=== PATIENT | female | born 1985 | race Two or more races ===

== ENCOUNTER 2024-08-11 10:40 | Inpatient (IN) | payer MEDICAID, SELFPAY ==
[2024-08-11] VITALS (93 sets, daily range): BP systolic 115–169; BP diastolic 60–95; PULSE 57–98; RESP 17–18; TEMP 36.8–37.7; O2SAT 83–100
--- NOTE | 2024-08-11 13:10 | XR_ITS ---
Examination: age Limited TECHNIQUE: Limited transabdominal sonographic images pelvis Exam date and time: August 11, 2024 1332 hours INDICATIONS: Labor evaluation unknown presentation. FINDINGS: Viable intrauterine gestation cephalic presentation spine maternal left Cardiac motion 138 BPM IMPRESSION: Viable intrauterine gestation cephalic presentation
[2024-08-11] MEDS: MISOPROSTOL 50 mCg TABLET PO (14:12)
[2024-08-11 14:35] LABS: Basophils % (Auto) 0 % (0-2.5); Eosinophils % (Auto) 0 % (0-10); Hemoglobin 13.2 g/dL (12.0-16.0); Immature Granulocytes % (Auto) 0 % (0-0); Immature Granulocytes Auto 0.03 Thou/mm3 (0.00-0.00); Lymphocytes # (Auto) 3.1 Thou/mm3 (1.0-4.8); Lymphocytes % (Auto) 42 % (10-50); Mean Corpuscular HGB Conc 36.7 g/dl (31.0-37.0); Mean Corpuscular Hemoglobin 34.7 pg (25.0-35.0); Mean Corpuscular Volume 95 fL (80-100); Monocytes # (Auto) 0.5 Thou/mm3 (0.0-0.8); Monocytes % (Auto) 7 % (0-12); Neutrophils # (Auto) 3.8 Thou/mm3 (1.8-7.7); Neutrophils % (Auto) 51 % (37-80); Nucleated Red Blood Cell % 0 /100 WBC (0); Platelet Count 138 Thou/mm3 (140-440); RDW Standard Deviation 45.5 fL (36.4-46.3); White Blood Count 7.4 Thou/mm3 (3.6-11.0)
[2024-08-11 15:04] LABS: Syphilis Nonreactive (Nonreactive)
[2024-08-11] MEDS: ursodioL 300 MG CAPSULE PO (16:01)
[2024-08-11] MEDS: MEPERIDINE INJ 50 MG/ML VIAL 75 MG IM (16:49)
[2024-08-11] MEDS: PROMETHAZINE INJ 25 MG/ML VIAL 12 MG IM (16:51)
--- NOTE | 2024-08-11 18:48 | PD.LDHP ---
Documentation for date of: 08/11/24 OB Labor/Induct. HPI History of Present Illness Chief complaint: induction : 3 Para: 2 Term pregnancies: 1 pregnancies: 1 Living children: 1 History of Abortions: Spontaneous and Elective: 0 History of Vaginal deliveries: 2 History of sections: No History of : No Date of last menstrual period: 11/24/23 MISTY: 08/30/24 Gestational Age (weeks): 38 Gestational Age (days): 3 Gestational age based on last menstrual period: 38 Indication for induction: medical complication (cholestasis) History of present illness: This is a third ED 9-year-old 3 para 2 patient has a history of demise at 24 weeks so living 1 follow-up [facility] care first visit 9 weeks. Last period. November 15, 2023. Estimated due date august 222023. Patient is admitted today because of cholestasis in at 38 weeks 3 days. Patient was treated started on ursodiol. And she has been getting NST BPP weekly. Denies social habits. Denies surgery. Eyes chronic illness. Patient is O+, antibody screen negative, RPR nonreactive, rubella immune, hepatitis B negative, hep C negative, HIV negative, GC and Chlamydia were negative. GBS negative. She had a normal 1 hour. NIPT and carrier AFP and carrier screens were negative. History of Present Dating criteria: LMP confirmed by 1st trimester US Adequate Care: Yes Ultrasounds: normal 1st trimester US and normal mid trimester US Obstetrical complications: other (cholestasis) Medical complications: none Labs Labs: Negative: Hepatitis B, HIV, Chlamydia, Gonorrhea and Group Beta Strep Review of Systems Review of Systems Systems Reviewed: All systems reviewed, normal except as documented Past Medical History Surgical History SURGICAL: Negative Section Meds Home Medications and Allergies Home Medications ?Medication ?Instructions ?Recorded ?Confirmed ?Type ferrous sulfate 325 mg (65 mg 325 mg PO QDAY 08/08/24 08/11/24 History iron) tablet (FeroSul) vits no.130-ferrous fum 1 tab PO QDAY 08/08/24 08/11/24 History 27 mg iron-folic acid 800 mcg tablet ( Vitamin) ursodiol 300 mg capsule 300 mg PO QDAY 08/08/24 08/11/24 History Allergies Allergy/AdvReac Type Severity Reaction Status Date / Time No Known Allergies Allergy Verified 08/11/24 12:10 OB Exam Physical Exam Vital signs: Temp Pulse Resp BP Pulse Ox 98.2 F 63 18 115/68 97 08/11/24 12:21 08/11/24 18:02 08/11/24 12:21 08/11/24 18:02 08/11/24 18:46 Narrative: Normal heart rate and rhythm. Lungs clear no wheezes. Gravid abdomen. Gynecoid pelvis. Estimated weight 6 and half pounds. Vaginal exam admission was long 1 and posterior. High. heart rate category 1 with accelerations and irregular contractions. Bag water was intact Detailed Labor and Delivery Exam Dilation (cm): 1 Effacement (%): 50 Cervix position: posterior station: -3 Consistency: medium Presentation: Vertex Cervical ripeness score: 3 Membranes: intact Baseline heart rate: 145 monitor accelerations: 15x15 monitor decelerations: None terminal makeup operator variability: Moderate (11-25) Contraction frequency (min): irregular Contraction duration (sec): 30 Tachysystole: No Contraction intensity: Mild OB Results Labs 08/11/24 13:30 Labs: Short CBC 08/11/24 Range/Units 13:30 WBC 7.4 (3.6-11.0) Thou/mm3 Hgb 13.2 (12.0-16.0) g/dL Hct 36.0 (36.0-46.0) % Plt Count 138 L (140-440) Thou/mm3 Impressions Impression: induction/cholestasis OB Assessment & Plan Assessment and Plan (1) Normal labor and delivery: Status: Acute Additional Plan Induction method: per misoprostol protocol Plan: induction, anticipate NVD and consult MD hairston
[2024-08-11] MEDS: MINERAL OIL 30 ML UDC TOP (19:35)
[2024-08-11] MEDS: OXYTOCIN in NS 20 units 20 UNIT/1,000 ML BAG 125 UNIT IV (19:37)
[2024-08-11] MEDS: TRANEXAMIC ACID 1,000 MG IVPB 1,000 MG/100 ML BAG 200 MG IV (19:38)
[2024-08-11] MEDS: OXYTOCIN INJ 10 UNIT/ML VIAL IM (19:40)
[2024-08-11] MEDS: MISOPROSTOL 200 mCg TABLET 800 MCG PR (19:40)
[2024-08-11] MEDS: LIDOCAINE HCL 1% 20 ML VIAL INFL (19:45)
[2024-08-11] MEDS: IBUPROFEN TAB 400 MG TABLET 800 MG PO (19:54)
[2024-08-11] MEDS: BENZO/LANO/ALOE (Dermoplast) 60 GM CAN 1 SPRAY TOP (19:55)
--- NOTE | 2024-08-11 20:07 | PD.LDDELS ---
Data ([place]) Data Hx Section: No : 3 Para: 2 Term: 1 : 1 : 0 Delivery Data ([place]) Labor Data Induction: Yes ROM Date: 08/11/24 ROM Time: 18:14 Rupture Type: AROM Amniotic Fluid: Clear Delivery Data EDC: 08/20/24 EDC calculated by:: LMP/early US confirmation Labor Onset Stage 1 Date: 08/11/24 Labor Onset Stage 1 Time: 18:29 Labor Onset Stage 2 Date: 08/11/24 Labor Onset Stage 2 Time: 19:20 Delivery Date: 08/11/24 Delivery Time: 19:36 Gestational age (weeks): 38 Gestational age (days): 3 Placenta Delivery Date: 08/11/24 Placenta Delivery Time: 19:41 Delivered by: China Maki Delivery nurse: Pilar Barnes Other staff at delivery: 2nd Nurse Other staff at delivery: Pratima Gale Delivery Method Delivery: Vaginal Delivery Type: Spontaneous Presentation: Vertex Position: OA Anesthesia Type Primary Anesthesia: Local Delivery Room Medications Intrapartum Medications: Narcotics and Tocolytics Post Delivery Medications: Tocolytics and Cytotec Placenta Placenta Delivery: Spontaneous Placenta Cultures Obtained: No Placenta Sent for Examination: No Cord Sample: Cord Blood Obtained Episiotomy Episiotomy: None Lacerations #1: Labial: right labia and small vaginal laceration Perineal repair Sutures used for repair: 3.0 Vicryl EBL Estimated blood loss (ml): 400 Umbilical Cord Umbilical Vessels: 3 Nuchal Cord: x1 Body Cord: None Data ([place]) [place] Data Infant Gender: Female Weight Grams: 3080 1 Minute Total: 6 5 Minute Total: 8
[2024-08-12 04:07] VITALS: BP 122/76; PULSE 78; RESP 16; TEMP 36.9; O2SAT 96
[2024-08-12 05:49] LABS: Basophils % (Auto) 0 % (0-2.5); Eosinophils % (Auto) 0 % (0-10); Hematocrit 31.9 % (36.0-46.0); Hemoglobin 11.7 g/dL (12.0-16.0); Immature Granulocytes % (Auto) 1 % (0-0); Immature Granulocytes Auto 0.06 Thou/mm3 (0.00-0.00); Lymphocytes # (Auto) 3.8 Thou/mm3 (1.0-4.8); Lymphocytes % (Auto) 29 % (10-50); Mean Corpuscular HGB Conc 36.7 g/dl (31.0-37.0); Mean Corpuscular Hemoglobin 35.1 pg (25.0-35.0); Mean Corpuscular Volume 96 fL (80-100); Monocytes # (Auto) 0.8 Thou/mm3 (0.0-0.8); Monocytes % (Auto) 6 % (0-12); Neutrophils # (Auto) 8.6 Thou/mm3 (1.8-7.7); Neutrophils % (Auto) 65 % (37-80); Nucleated Red Blood Cell # 0.02 Thou/mm3 (0.00-0.00); Nucleated Red Blood Cell % 0 /100 WBC (0); Platelet Count 97 Thou/mm3 (140-440); RDW Standard Deviation 45.5 fL (36.4-46.3); Red Blood Count 3.33 Miln/mm3 (4.00-5.20); White Blood Count 13.3 Thou/mm3 (3.6-11.0)
--- NOTE | 2024-08-12 07:43 | PD.LDPPPRG ---
Subjective Subjective Interval history: No complaints of pain. No dizziness. Bonding and breast-feeding Exam Vital Signs Temp Pulse Resp BP Pulse Ox O2 Del Method 98.4 F 78 16 122/76 96 Room Air 08/12/24 04:07 08/12/24 04:07 08/12/24 04:07 08/12/24 04:07 08/12/24 04:07 08/12/24 04:07 Narrative Exam Vital signs stable afebrile. Breasts are soft. Fundus firm below the umbilicus. Perineum intact no swelling. Small lochia. Uterus well involuted. Negative Homans' sign. 2+ DTRs. No warmth or redness of the legs. Objective Labs 08/12/24 05:22 Labs: Laboratory Results - last 24 hr 08/11/24 08/12/24 13:30 05:22 WBC 7.4 13.3 H D RBC 3.80 L 3.33 L Hgb 13.2 11.7 L Hct 36.0 31.9 L MCV 95 96 MCH 34.7 35.1 H MCHC 36.7 36.7 RDW Std Deviation 45.5 45.5 Plt Count 138 L 97 L D Neut % (Auto) 51 65 Lymph % (Auto) 42 29 [place] % (Auto) 7 6 Eos % (Auto) 0 0 Baso % (Auto) 0 0 Neut # (Auto) 3.8 8.6 H Lymph # (Auto) 3.1 3.8 [place] # (Auto) 0.5 0.8 Eos # (Auto) 0.0 0.0 Baso # (Auto) 0.0 0.0 Immature Gran # (Auto) 0.03 H 0.06 H Absolute Nucleated RBC 0.00 0.02 H Immature Gran % 0 1 H Nucleated RBC % 0 0 Syphilis Serology Nonreactive Blood Type O Positive Antibody Screen NEGATIVE Blood Bank Wristband ID Yes Assessment & Plan Problem List (1) Normal labor and delivery: Status: Acute Assessment Comment Assessment comment: 24 hr pp Plan Comment Plan Comment: Discharge home with baby. Continue vitamins and iron. Tylenol or ibuprofen for pain. I discussed danger signs and symptoms with the patient. Discussed ER precautions and parameters. Discussed signs and symptoms of infection. Discussed wound care and patient to return in 2 weeks visit. Increase fluids and rest Time Spent With Patient Time: Total time spent is greater than 50% in coordination of care (as documented) at patient's floor/unit and/or counseling patient:
--- NOTE | 2024-08-12 07:44 | PD.LDDS ---
DS: Providers Provider Date of admission: 08/11/24 10:40 Primary care physician: Physician No Primary/Family Admitting Provider: Micehlle Vasquez MD Attending Provider on Admission: China Maki CNM Consults: 08/11/24 20:27 Referral Routine Comment: Attending Provider on DC: China Maki CNM Discharging Provider: China Maki CNM DS: Diagnosis Problem List Completed Was Problem List Reviewed/Reconciled?: Yes Summary/Hosp Course Brief History: This is a third ED 9-year-old 3 para 2 patient has a history of demise at 24 weeks so living 1 follow-up [facility] care first visit 9 weeks. Last period. November 15, 2023. Estimated due date august 222023. Patient is admitted today because of cholestasis in at 38 weeks 3 days. Patient was treated started on ursodiol. And she has been getting NST BPP weekly. Denies social habits. Denies surgery. Eyes chronic illness. Patient is O+, antibody screen negative, RPR nonreactive, rubella immune, hepatitis B negative, hep C negative, HIV negative, GC and Chlamydia were negative. GBS negative. She had a normal 1 hour. NIPT and carrier AFP and carrier screens were negative. Peripartum Data Delivery Method: Normal Vaginal Delivery Episiotomy Description: None Laceration Description: yes (small labial and vag lac) Time Spent with Patient Time attestation: Total time spent providing and/or coordinating discharge services: Exam Vital Signs Temp Pulse Resp BP Pulse Ox O2 Del Method 98.4 F 78 16 122/76 96 Room Air 08/12/24 04:07 08/12/24 04:07 08/12/24 04:07 08/12/24 04:07 08/12/24 04:07 08/12/24 04:07 Discharge Plan Plan Patient Disposition: HOME (Self Care) Prescriptions/Referrals Prescriptions/Med Rec: No Action ferrous sulfate [FeroSul] 325 mg (65 mg iron) tablet 325 mg PO QDAY ursodiol 300 mg capsule 300 mg PO QDAY Vitamin 27 mg iron- 800 mcg tablet 1 tab PO QDAY Referrals: No Primary/Family,Physician [Primary Care Provider] - Patient/Caregiver Discharge Instructions Print Language: Prydeinig Activity Restrictions/Additional Instructions: Discharge home with baby today. Continue vitamins. ER precautions and per and parameters discussed. And iron. Tylenol ibuprofen for pain. Danger signs discussed with patient.. Return in 2 weeks visit. Discussed comfort measures for her labial laceration. Discussed signs and symptoms of infection. Stand Alone Forms: Ruth Award Info., Patient Portal Info Letter Discharge Order Discharge Orders: Discharge (Routine); Ordered 08/12/24 Ordered By: China Maki Planned Discharge Date 08/12/24
[2024-08-12] MEDS: DOCUSATE SOD 100 MG CAPSULE PO (08:53)
[2024-08-12 08:58] VITALS: BP 121/80; PULSE 73; RESP 18; TEMP 36.9; O2SAT 96
[2024-08-12 12:45] VITALS: BP 123/71; PULSE 82; RESP 16; TEMP 36.9; O2SAT 97
[2024-08-12] MEDS: IBUPROFEN TAB 400 MG TABLET 800 MG PO (13:24)
[2024-08-12 15:40] VITALS: BP 112/71; PULSE 80; RESP 16; TEMP 37
[2024-08-12] MEDS: INFLUENZA VIRUS QUADRIVALENT 0.5 ML SYRINGE IMi (16:07)
[2024-08-12] MEDS: DIPHTH,PERTUSS(ACELL),TET VAC 0.5 ML VIAL IMi (16:08)
[2024-08-12 19:40] VITALS: BP 129/76; PULSE 68; RESP 16; TEMP 36.9; O2SAT 98
== END 2024-08-12 21:10 | disposition home or self-care (01) | DRG 560 ==
LOC: S4SX 13:20 → S4NX 21:44
PROVIDERS: Admitting Provider Student in an Organized Health Care Education/Training Program; Visit Provider Advanced Practice Midwife
DX: O26.643 Intrahepatic cholestasis of pregnancy, third trimester (principal); E78.79 Other disorders of bile acid and cholesterol metabolism; K76.89 Other specified diseases of liver; Z37.0 Single live birth; Z3A.38 38 weeks gestation of pregnancy; O69.81X0 Labor and delivery complicated by cord around neck, without compression, not applicable or unspecified; O71.4 Obstetric high vaginal laceration alone; Z23 Encounter for immunization
CPT/HCPCS: 36415; 59409; 76815; 85025; 86780; 86850; 86900; 86901; 90686; 90715; 94762; J2175; J2550; J2590; J3490; S0191; A9270; J9060

== ENCOUNTER 2024-09-25 11:09 | Emergency (ER) | payer MEDICAID, SELFPAY ==
[2024-09-25 13:15] VITALS: BP 111/71; PULSE 67; RESP 16; TEMP 36.8; O2SAT 98; BMI 26.9
--- NOTE | 2024-09-25 13:24 | XR_ITS ---
Examination: Pelvic ultrasound, transabdominal, complete Technique: Transabdominal ultrasound of the pelvis performed using grayscale imaging Date and time of exam: September 25, 2023 1350 hrs. Indications: Onset vaginal bleeding and pelvic pain beginning 4 days ago Findings: Uterus 8.2 x 4.2 x 5.7 cm No uterine mass or intrauterine gestation Endometrial stripe 0.4 cm Right ovary 3.8 x 2.1 x 3.1 cm arterial flow 19 mm follicular cyst Left ovary 3.0 x 2.2 x 2.1 cm arterial flow 18 mm follicular cyst Impression: No uterine mass or intrauterine gestation
--- NOTE | 2024-09-25 13:25 | EDNOTE_ITS ---
ED OB Contraction Preg RMI/HPI General Chief complaint: Vaginal Bleeding Stated complaint: HEAVY VAGINAL BLEEDING PAIN X 4 DAYS Time Seen by Provider: 09/25/24 13:24 Arrival date/time: 09/25/24 11:09 RME / HPI RME / HPI Narrative: 39-year-old female presents emergency department with complaint of vaginal bleeding that began 4 days ago. Patient states she gave on August 13, 2024. And has not had her period since then. She rates her pain currently as a 7 out of 10 pain begins in the pelvic region and radiates to her back. She denies pain with urination or burning with urination. She denies fever or chills. Related Data Home Medications ?Medication ?Instructions ?Recorded ?Confirmed ferrous sulfate 325 mg (65 mg 325 mg PO QDAY 08/08/24 08/11/24 iron) tablet (FeroSul) vits no.130-ferrous fum 1 tab PO QDAY 08/08/24 08/11/24 27 mg iron-folic acid 800 mcg tablet ( Vitamin) ursodiol 300 mg capsule 300 mg PO QDAY 08/08/24 08/11/24 Allergies Allergy/AdvReac Type Severity Reaction Status Date / Time No Known Allergies Allergy Verified 09/25/24 11:11 Review of Systems Review of Systems Systems Reviewed: All systems reviewed, normal except as documented Constitutional Constitutional: Reports system reviewed and no additional complaints, except as documented Cardiovascular Cardiovascular: Reports system reviewed and no additional complaints, except as documented Respiratory Respiratory: Reports system reviewed and no additional complaints, except as do cumented Genitourinary Genitourinary: Reports system reviewed and no additional complaints, except as documented Musculoskeletal Musculoskeletal: Reports system reviewed and no additional complaints, except as documented Neurologic Neurologic: Reports system reviewed and no additional complaints, except as documented ED Exam General General appearance: Present alert and in no apparent distress ENT ENT exam: Present normal exam and normal oropharynx Chest Chest inspection: Present normal inspection Respiratory Respiratory exam: Present normal lung sounds bilaterally Cardiovascular Cardiovascular exam: Present regular rate and normal rhythm Abdominal Exam Abdominal exam: Present soft External exam: Present other (declined) Neurological Exam Neurological exam: Present alert and oriented X3 Course Quality Measures none Orders Category Date Time Status US pelvic complete Stat Exams 09/25/24 13:24 Completed HCG Qualitative,Urine Stat Lab 09/25/24 15:09 Completed Urinalysis, C/S if Indicated Stat Lab 09/25/24 15:09 Completed HYDROcodone*/APAP 5/325 [[place] 5/325] Med 09/25/24 13:24 Discontinued 1 tab PO X1 ONE HYDROcodone*/APAP 5/325 [[place] 5/325] Med 09/25/24 13:27 Discontinued 1 tab PO X1 ONE Vital Signs Vital signs: Vital Signs Temperature 98.2 F 09/25/24 13:15 Pulse Rate 67 09/25/24 13:15 Respiratory Rate 16 09/25/24 13:15 Blood Pressure 111/71 09/25/24 13:15 Pulse Oximetry (%) 98 09/25/24 13:15 Oxygen Delivery Method Room Air 09/25/24 13:15 Vaginal Bleeding MDM Narrative MDM Narrative: 39-year-old patient presents emergency department with complaint of vaginal bleeding patient states that she recently gave in July 2024 and she has not had a menstrual cycle since then. Blood work was unremarkable for anemia ultrasound of pelvic was negative for ovarian pathology patient is stable to [place] home to follow-up with PCP Patient data External records reviewed:: None Clinical information provided by:: none Social determinants that could affect healthcare access:: none Patient has the following chronic illnesses:: na How is presenting disease/condition affected by chronic disease/condition?: no chronic disease Evaluation data The following diagnostics were reviewed and interpreted by me:: lab results, radiology exam(s) and other (specify) Lab and/or radiology exams considered but not ordered:: both considered and ordered Interpretation Summary: na Medications / Prescriptions Medications or Prescriptions considered but not ordered:: meds considered and ordered Medication administrations:: Medication Administration History Discontinued Medications Hydrocodone Bitart/Acetaminophen (Hydrocodone/Apap 5/325 Tablet) 1 tab PO X1 ONE Stop: 09/25/24 13:25 Last Admin: 09/25/24 13:30 Dose: 1 tab Documented By: GUMARO Hydrocodone Bitart/Acetaminophen (Hydrocodone/Apap 5/325 Tablet) 1 tab PO X1 ONE Stop: 09/25/24 13:28 Last Admin: 09/25/24 13:30 Dose: Not Given Documented By: GUMARO Non-Admin Reason: Discontinued per above Consultations Consultation(s) initiated? (list below): No Diagnosis Vaginal Bleeding Differential Diagnosis: missed , threatened , dysfunctional uterine bleeding, menometrorrhagia and incomplete Most likely diagnosis given after review of the tests above:: DUB Admission Indicated Admission indicated?: not indicated Explain why admission is indicated or not indicated:: na Admission Request Was there a request for admission?: No Disposition Plan Disposition Plan: Discharge Discharge Attestation Discharge Attestation: The patient and all family members were given an opportunity to ask questions and understood the discharge instructions. Discharge instructions specifically effects, indications for sooner follow up or return to the emergency department, and the expected course of current diagnosis. Patient condition: Stable Discharge Plan Plan Patient Disposition: HOME (Self Care) Prescriptions/Referrals Prescriptions/Med Rec: No Action ferrous sulfate [FeroSul] 325 mg (65 mg iron) tablet 325 mg PO QDAY ursodiol 300 mg capsule 300 mg PO QDAY Vitamin 27 mg iron- 800 mcg tablet 1 tab PO QDAY Referrals: Gene Stanton MD [Primary Care Provider] - In 1 week Problem List Clinical Impression: Vaginal bleeding, Menometrorrhagia Patient/Caregiver Discharge Instructions Education Materials: ED Dysfunctional Uterine Bleeding, ED Heavy Menstrual Bleeding Print Language: Chadian Stand Alone Forms: Ruth Award Info., Patient Portal Info Letter
[2024-09-25] MEDS: HYDROcodone/APAP 5/325 TABLET 1 TAB PO (13:30)
[2024-09-25 15:20] LABS: Collection Type, Urine Voided
[2024-09-25 15:44] LABS: Bilirubin,Urine Negative (Negative); Blood,Urine 3+ (Negative); Culture Indicated,Urine Not Indicated; Glucose, Urine Negative (Negative); Ketones,Urine Negative (Negative); Leukocyte Esterase,Urine Positive (Negative); Nitrite,Urine Negative (Negative); Protein,Urine 1+ (Neg - Trace); RBC,Urine 5071 /hpf (0-3); Squamous Epithelial Cell,Urine 3 /hpf (0-5); Urobilinogen,Urine Negative mg/dL (0.0-1.0); WBC,Urine 8 /hpf (0-5)
[2024-09-25 15:46] LABS: HCG Qualitative,Urine Negative
[2024-09-25 15:47] LABS: Clarity,Urine Bloody (Clear/Hazy); Color,Urine Red (Lt Yel-Yel)
== END 2024-09-25 18:21 | disposition home or self-care (01) ==
PROVIDERS: Physician Assistant; Emergency Provider Emergency Medicine; PCP Family Medicine
DX: N92.1 Excessive and frequent menstruation with irregular cycle (principal)
CPT/HCPCS: 76856; 81001; 81025; 99284; A9270

== ENCOUNTER 2025-01-28 12:05 | Inpatient (IN) | payer MEDICAID, SELFPAY ==
--- NOTE | 2025-01-28 12:34 | PD.EDPREG ---
ED OB Contraction Preg RMI/HPI General Chief complaint: General Adult/Misc Complain Stated complaint: Possible /in labor Time Seen by Provider: 01/28/25 12:45 Arrival date/time: 01/28/25 12:05 Limitations: no limitations RME / HPI RME / HPI Narrative: 39 year old female with history of prior pregnancies presents to the ED for evaluation of contraction-like abdominal pain that began yesterday and has worsened this morning. She reports a sudden gush of fluid at approximately 11:20 AM today after getting out of the bath. She is unsure of her last menstrual period but states she delivered her daughter via vaginal delivery at this hospital on 08/11/2024; the child is now 4 months old. She denies vaginal bleeding and reports no other associated symptoms. Related Data Home Medications ?Medication ?Instructions ?Recorded ?Confirmed ferrous sulfate 325 mg (65 mg 325 mg PO QDAY 08/08/24 08/11/24 iron) tablet (FeroSul) vits no.130-ferrous fum 1 tab PO QDAY 08/08/24 08/11/24 27 mg iron-folic acid 800 mcg tablet ( Vitamin) ursodiol 300 mg capsule 300 mg PO QDAY 08/08/24 08/11/24 Allergies Allergy/AdvReac Type Severity Reaction Status Date / Time No Known Allergies Allergy Verified 09/25/24 11:11 Review of Systems Review of Systems Narrative Review of Systems: GEN: No fever, no chills, no weight loss EYES: No discharge, no visual changes, no pain HEENT: No ear pain, no congestion, no sore throat PULM: No shortness of breath, no cough, no congestion CV: No chest pain, no palpitations GI: No nausea, no vomiting, no diarrhea, +pain, no constipation : No frequency, no urgency, no dysuria MUSC/SKEL: No joint pain, no back pain SKIN: No rash NEURO: No weakness, no headache Past Medical History Past Medical History NEUROLOGIC: Negative Neurological Disorders CARDIAC: Negative Cardiac Disorders GASTROINTESTINAL: Negative Gastrointestinal Disorders GENITOURINARY: Negative Genitourinary Disorders or Renal Disease MUSCULOSKELETAL: Negative Musculoskeletal Disorders ENDOCRINE: Negative Endocrine Disorders Family History FAMILY HISTORY: Negative Family Psychiatric Problems, Family Respiratory Disorders, Family Cardiac Disorders, Family Gastrointestinal Problems, Family Cancer, Family Surgery or Family Anesthesia Reaction Surgical History SURGICAL: Negative Section Social History SMOKING STATUS: Never smoker SECOND HAND EXPOSURE: No ED Exam General Limitations: Present no limitations General appearance: Present alert Head Head exam: Present atraumatic Eye Eye exam: Present normal appearance and EOMI ENT ENT exam: Present normal exam, normal oropharynx and mucous membranes moist Neck Neck exam: Present normal inspection, full ROM and trachea midline Chest Chest inspection: Present normal inspection and symmetric chest wall rise Respiratory Respiratory exam: Present normal lung sounds bilaterally Cardiovascular Cardiovascular exam: Present regular rate, normal rhythm and normal heart sounds Abdominal Exam Abdominal exam: Present soft and normal bowel sounds External exam: Present normal external exam (no vaginal bleeding ) Extremities Exam Extremities exam: Present normal inspection and full ROM Back Exam Back exam: Present normal inspection and full ROM Neurological Exam Neurological exam: Present alert, oriented X3 and CN II-XII intact Psychiatric Psychiatric exam: Present normal affect and normal mood Skin Skin exam: Present warm, dry, intact and normal color Course Quality Measures none OB/Uterine Contractions MDM Narrative MDM Narrative:: 39 year old female presented to the ED with contraction-like pain beginning yesterday with a gush of fluid sensation today at 11:20 AM. While in the ED, a bedside ultrasound was performed showing an intrauterine , baby measuring about 16-17 weeks. Plan was for patient to go upstairs to OB for further evaluation. However, while I was standing in the room at 12:34, the patient began to feel the urge to push and on evaluation there was double foot presentation, no vaginal bleeding. OB Dr. Ziegler was called. 12:[address] Ziegler at bedside and attempted to deliver baby. Has decided to take the patient upstairs to the OB unit for pain management and delivery. Care transferred over the Dr. Ziegler at 12:42. Patient data External records reviewed:: [facility] previous records (I reviewed delivery records on 08/11/2024) Clinical information provided by:: patient Social determinants that could affect healthcare access:: none Patient has the following chronic illnesses:: Previous pregnancies, no chronic medical hx reported How is presenting disease/condition affected by chronic disease/condition?: uneffected by Evaluation data The following diagnostics were reviewed and interpreted by me:: lab results Lab and/or radiology exams considered but not ordered:: None Interpretation Summary: Bedside ultrasound was performed as noted above Medications / Prescriptions Medications or Prescriptions considered but not ordered:: None Medication administrations:: None in the ED Consultations Consultation(s) initiated? (list below): Yes Consultation #1 (Physician, Specialty, Details): OB Dr. Ziegler at bedside and care was transferred to her. Diagnosis OB Contractions Differential Diagnosis: premature labor and other (miscarriage, PPROM, labor ) Most likely diagnosis given after review of the tests above:: IUP Possible ruptured membranes? Admission Indicated Admission indicated?: indicated Explain why admission is indicated or not indicated:: Patients care was transferred to OB Dr. Ziegler. Patient was unable to delivery baby in the ED and sent upstairs to OB for pain control and delivery. Admission Request Was there a request for admission?: Yes Admission Attestation Admission request attestation: Discussed case with [] from Hospitalist service regarding admission. Discussed patients ED course, exam findings, labs, and radiology results. The Hospitalist [agrees,declines] to accept the patient for admission. Disposition Plan Disposition Plan: Admit (Patients care transferred over to OB Dr. Ziegler ) Discharge Plan Plan Patient Disposition: Other Care w/in Hosp ([facility]) Discharge Disposition comment: Admit to OB Dr. Ziegler Prescriptions/Referrals Prescriptions/Med Rec: No Action ferrous sulfate [FeroSul] 325 mg (65 mg iron) tablet 325 mg PO QDAY ursodiol 300 mg capsule 300 mg PO QDAY Vitamin 27 mg iron- 800 mcg tablet 1 tab PO QDAY Problem List Clinical Impression: Intrauterine Impression comment: possible ruptured membrane ? Patient/Caregiver Discharge Instructions Print Language: Croatian Stand Alone Forms: Ruth Award Info., Patient Portal Info Letter
--- NOTE | 2025-01-28 12:46 | PC.NURSE ---
DR SOTELO CAME TO ASSIST WITH DELIVERING FETUS, DR SOTELO DECIDED TO TAKE PATIENT TO OB AT THIS TIME. PT TAKEN TO OB WITH PRIMARY NURSE, , AND 2 OB NURSES
--- NOTE | 2025-01-28 12:58 | PC.NURSE ---
Pt came in through triage, reports she did not know she was , believes her water broke. MD Levine performed bedside US, that showed baby w/heartbeat. Pt then stated she felt something, when checked there was feet hanging out of vagina. OB was called, OB provider and nurses came down took over care. Pt was taken to L&D by this RN and L&D RNs.
--- NOTE | 2025-01-28 13:19 | XR_ITS ---
Examination: Complete OB ultrasound greater than 14 weeks Date and time of exam: January 28, 2025 1340 hours INDICATIONS: Leaking amniotic fluid today with pelvic contractions Findings: Viable intrauterine single fetus with single amniotic sac presentation breech Cardiac motion 169 bpm Placenta posterior grade 1 Umbilical cord insertion seen Amniotic fluid index 3.5 CM Cervix 4.7 cm Right ovary obscured by bowel gas Left ovary 3.3 cm arterial flow Composite estimated gestational age based on BPD, head circumference, abdominal circumference, femur length is 17 weeks 6 days Estimated weight 201.6 g. Survey of intracranial anatomy, spinal anatomy, abdominal anatomy, four-chamber heart performed with no abnormalities identified. Impression: Viable intrauterine gestation breech presentation Femur measured in the cervix.
--- NOTE | 2025-01-28 14:08 | PC.NURSE ---
Karlie HAHN called and notified verbal result from US was 17w+6d, FHR 169bpm. Per MD give PO Cytotec now, FHR and UC monitoring not needed. Pt may ambulate in room
[2025-01-28] MEDS: MISOPROSTOL 200 mCg TABLET 400 MCG PO (14:24)
[2025-01-28 14:26] LABS: Basophils % (Auto) 0 % (0-2.5); Eosinophils # (Auto) 0.1 Thou/mm3 (0.0-0.5); Eosinophils % (Auto) 0 % (0-10); Hematocrit 30.2 % (36.0-46.0); Hemoglobin 11.2 g/dL (12.0-16.0); Immature Granulocytes % (Auto) 0 % (0-0); Immature Granulocytes Auto 0.04 Thou/mm3 (0.00-0.00); Lymphocytes % (Auto) 14 % (10-50); Mean Corpuscular HGB Conc 37.1 g/dl (31.0-37.0); Mean Corpuscular Hemoglobin 34.6 pg (25.0-35.0); Mean Corpuscular Volume 93 fL (80-100); Monocytes # (Auto) 0.7 Thou/mm3 (0.0-0.8); Monocytes % (Auto) 5 % (0-12); Neutrophils # (Auto) 11.3 Thou/mm3 (1.8-7.7); Neutrophils % (Auto) 80 % (37-80); Nucleated Red Blood Cell % 0 /100 WBC (0); Platelet Count 248 Thou/mm3 (140-440); RDW Standard Deviation 43.9 fL (36.4-46.3); Red Blood Count 3.24 Miln/mm3 (4.00-5.20)
[2025-01-28 15:00] VITALS: RESP 18; TEMP 37.3
[2025-01-28 15:03] LABS: Syphilis Nonreactive (Nonreactive)
[2025-01-28 15:45] VITALS: TEMP 38.4
--- NOTE | 2025-01-28 15:49 | PC.NURSE ---
Karlie HAHN notified of pt shaking and temp of 101.1 F, orders received for IV Tylenol 1,000mg
[2025-01-28] MEDS: ACETAMINOPHEN IVPB 1,000 MG/100 ML VIAL 250 MG IV (15:52)
[2025-01-28] MEDS: fentaNYL CIT INJ 50 mCg/ML AMP 2ML 100 MCG IV (16:18)
[2025-01-28] MEDS: ceFAZolin/D5W 2 GM IV 2 GM/100 ML BAG IV (16:45)
[2025-01-28 17:15] VITALS: RESP 14; TEMP 36.6
[2025-01-28] MEDS: OXYTOCIN in NS 20 units 20 UNIT/1,000 ML BAG 125 UNIT IV (17:48)
[2025-01-28 18:00] VITALS: RESP 12; TEMP 36.4
--- NOTE | 2025-01-28 18:18 | PD.LDHP ---
Documentation for date of: 01/28/25 OB Labor/Induct. HPI History of Present Illness Chief complaint: Ruptured membranes, 17 weeks : 4 Para: 3 Term pregnancies: 2 pregnancies: 1 Living children: 2 History of Abortions: Spontaneous and Elective: 0 History of Vaginal deliveries: 3 History of sections: No History of : No Gestational Age (weeks): 17 Gestational Age (days): 6 History of present illness: The patient is a 39-year-old -1-0-2 with a history of vaginal delivery x 2 in the past , the most recent baby delivered on August 11, 2024. She also stated she was induced in another when she was 4 to 5 months along for a demise. That baby apparently did not develop kidneys. The patient is Kazakh-speaking only. She presented to the ER today reporting ruptured membranes. She was unsure of her LMP but stated she might have been 4 months . In the ER ,small feet were coming from patient's vagina. I went to the ER to evaluate the patient, she was not bleeding heavily, she could not push and did not feel contractions so she was admitted up to labor and delivery for further management. In labor and delivery she was given 400 mcg of Cytotec orally. She went on to deliver vaginally a nonviable fetus in a double footling breech presentation at 1600. I was not at bedside but was called over from clinic. I arrived at bedside by 1610. The patient was found to be bleeding briskly with placenta still in place. Approximate EBL in the delivery room was 600 cc. The patient could not push the placenta out and was too uncomfortable. At this point, I called for emergent manual removal of placenta and curettage in the OB OR. History of Present Dating criteria: other (Unsure of LMP. Last baby was born in July 2024.) Adequate Care: No Ultrasounds: none Obstetrical complications: none Narrative: AMA, history of the demise for a baby who did not develop kidneys. Labs Maternal Blood Type: O Pos Labs: Unknown: RPR, Hepatitis B, Rubella Titre, HIV, Chlamydia, Gonorrhea, Herpes Type 1, Herpes Type 2, Group Beta Strep and Covid-19 Past Medical History Surgical History SURGICAL: Negative Section Meds Home Medications and Allergies Home Medications ?Medication ?Instructions ?Recorded ?Confirmed ?Type ferrous sulfate 325 mg (65 mg 325 mg PO QDAY 08/08/24 01/28/25 History iron) tablet (FeroSul) vits no.130-ferrous fum 1 tab PO QDAY 08/08/24 01/28/25 History 27 mg iron-folic acid 800 mcg tablet ( Vitamin) ursodiol 300 mg capsule 300 mg PO QDAY 08/08/24 08/11/24 History Allergies Allergy/AdvReac Type Severity Reaction Status Date / Time No Known Allergies Allergy Verified 01/28/25 13:48 OB Exam Physical Exam Vital signs: Temp Resp 101.1 F H 18 01/28/25 15:45 01/28/25 15:00 Detailed Labor and Delivery Exam Effacement (%): 50 Cervix position: mid station: +2 ( feet visible at maternal labia majora) Consistency: medium Presentation: Footling Membranes: ruptured Amniotic fluid: clear OB Results Labs 01/28/25 13:57 Labs: Short CBC 01/28/25 Range/Units 13:57 WBC 14.0 H (3.6-11.0) Thou/mm3 Hgb 11.2 L (12.0-16.0) g/dL Hct 30.2 L (36.0-46.0) % Plt Count 248 (140-440) Thou/mm3 OB Assessment & Plan Assessment and Plan (1) Intrauterine : Status: Acute Assessment and plan: Intrauterine at 17-6/7 weeks (2) premature rupture of membranes: Status: Acute Assessment and plan: Admit for augmentation of labor as feet are already protruding from patient's vagina visible at her labia Additional Plan Induction method: other (400 mcg Cytotec orally ordered) Plan: induction Additional Plan Comment: Patient is consented for a possible dilation and curettage. (2) premature rupture of membranes Qualifiers: PROM onset of labor timing: onset of labor within 24 hours of rupture Qualified Code(s): O42.019 - premature rupture of membranes, onset of labor within 24 hours of rupture, unspecified trimester
--- NOTE | 2025-01-28 19:45 | OBDSUM_ITS ---
Data ([facility]) Data Hx Section: No Maternal Blood Type: O Pos Rubella Titre: Unknown RPR: Unknown Labs: Unknown: RPR, Hepatitis B, HIV, Chlamydia, Gonorrhea, Herpes Type 1, Herpes Type 2 and Group Beta Strep : 4 Term: 2 : 1 Livin Abortions: Spontaneous & Theraputic: 0 Delivery Data ([facility]) Labor Data Initiation of labor: Spontaneous Induction/Augmentation Agent: Cytotec-PO ROM date: 01/28/25 ROM time: 11:30 Amniotic membrane rupture type: Spontaneous Amniotic fluid description: Clear Delivery Data EDC: 01/28/25 EDC calculated by:: other (Unsure LMP. No care.) Date of arrival to unit: 01/28/25 Time of arrival to unit: 13:30 Onset of labor date: 01/28/25 delivery date: 01/28/25 delivery time: 16:00 Gestational age (weeks): 17 Gestational age (days): 6 Placenta delivery date: 01/28/25 Placenta delivery time: 16:55 Delivered by: Tasia Ziegler ([facility]) Delivery nurse: Parrish Chief Librarian Extension Department at delivery: No Support person(s) at delivery: None Delivery Method Delivery: Vaginal Presentation: Footling Breech Anesthesia Type Primary Anesthesia: None Secondary Anesthesia: None (Fentanyl after delivery) Delivery Room Medications Other Intrapartum Medications: No Post Delivery Medications: Narcotics (Fentanyl after delivery) Placenta Placenta Delivery: Manual Placenta Cultures Obtained: No Placenta Sent for Examination: Yes EBL Estimated blood loss (ml): 600 Umbilical Cord Umbilical Vessels: Not Applicable Nuchal Cord: None Body Cord: None Additional Procedures Patient presented to the ER with rupture of membranes and feet emerging from patient's vagina at the level of her labia. She was not bleeding heavily. The fluid was clear. She could not push the baby out in the ER and was sent up to labor and delivery. The Patient was not reporting any contractions was given 400 mcg of oral Cytotec. She went on to feel pressure and suddenly push the baby out at 1600. She delivered in a double footling breech presentation with the RN. The weight was 200 g Apgars were 0 and 0. I was at bedside approximately 10 minutes later. The patient was noted to be bleeding briskly and had passed clots. The nurses had already changed her chux twice and the EBL was estimated to be approximately 600 cc post delivery. The patient could not push placenta out and was uncomfortable. She was consented for an emergent exam under anesthesia ,placental extraction and curettage. Complications Complications: hemorrhage Data ([place]) Data [place]'s gender: Ambiguous weight (gms): 200 g 1 minute: 0 5 minutes: 0 Additional Comments Additional comments: 17-week nonviable fetus delivered at 1600
[2025-01-28 19:55] LABS: Amphetamine/Metham Scrn,Ur OB Negative (Negative); Benzoylecgonine Screen, Ur OB Negative (Negative); Opiate Screen,Urine OB Negative (Negative); THC Screen,Urine OB Negative (Negative)
--- NOTE | 2025-01-28 19:56 | ESOP_ITS ---
Operative Note - ONLINE MARKETER Procedure Date of procedure: 01/28/25 Procedure Performed: Exam under anesthesia, manual removal of placenta, uterine curettage Pre-Op diagnosis: 1. Intrauterine at 17-6/7 weeks 2. Premature rupture of membranes 3. vaginal delivery of 17-week fetus 4. Retained placenta and hemorrhage Post-Op diagnosis: Same Anesthesia type: Spinal Fluids: crystalloid Fluid amount (mL): 2,000 Urine output (mL): 400 Specimen: other (Placenta) Implants: None Estimated blood loss (ml): 100 Findings: Retained placenta Complications: none Narrative: After obtaining informed consent in Yoruba from an official tape sewing machine operator, the patient was brought back to the operating room and spinal anesthesia administered. She was then prepped and draped in the dorsal lithotomy position using candy cane stirrups in a normal sterile fashion. A Dor[place] catheter was inserted to the patient's bladder. The patient was given 2 g of Ancef by anesthesia. A weighted speculum was inserted in the patient's vagina and the umbilical cord grasped with a ring forcep. The placenta was then teased out of the uterus using a ring forcep in its entirety. A ring forcep was then placed at 12:00 on the patient's cervix and the patient's endometrium underwent a brisk endometrial curettage using a wide loop endometrial curette. The scrapings were sent down to pathology for further review. A manual exploration of the cavity was then performed with the surgeon's fingers and no fragments of placenta noted to be left. The patient was given IV Pitocin and TXA. Her brisk bleeding was noted to have slowed down quite a bit after vigorous uterine massage and the medications given above. All instrumentation was then removed from the patient's vagina and the procedure terminated. The patient tolerated the procedure well. Sponge, lap , and needle counts were correct x 2 . the patient went to the recovery area awake and in stable condition. Pathology was placenta. Surgical staff Operation Date: 01/28/25 15:45 Case Staff LOSS CONTROL REPRESENTATIVE: Gigi Smalls Diagnosis Discharge Diagnosis (1) premature rupture of membranes: Status: Acute Problem details: Premature rupture of membranes at 17-6/7 weeks with feet present in maternal vagina on presentation. (2) Intrauterine : Status: Acute Problem details: 17 6/7 weeks (3) Retained placenta: Status: Acute Problem details: Placenta removed in the OR. Sent down to pathology for further review. (4) hemorrhage: Status: Acute Problem details: Keep overnight. Recheck CBC in AM. Problem List Completed Was Problem List Reviewed/Reconciled?: Yes (1) premature rupture of membranes Qualifiers: PROM onset of labor timing: onset of labor within 24 hours of rupture Qualified Code(s): O42.019 - premature rupture of membranes, onset of labor within 24 hours of rupture, unspecified trimester (3) Retained placenta Qualifiers: Retained placenta detail: complete placenta Qualified Code(s): O73.0 - Retained placenta without hemorrhage (4) hemorrhage Qualifiers: hemorrhage type: other immediate Qualified Code(s): O72.1 - Other immediate hemorrhage
[2025-01-28 20:00] VITALS: BP 100/67; PULSE 74; RESP 16; TEMP 37.2; O2SAT 98
--- NOTE | 2025-01-28 20:19 | PC.NURSE ---
2013 Dr. Ziegler at bedside
--- NOTE | 2025-01-28 20:51 | PC.NURSE ---
2042 Deacon Reina at bedside. 2049 Deacon noland.
[2025-01-28 23:46] VITALS: BP 96/58; PULSE 88; RESP 16; TEMP 36.9; O2SAT 96
[2025-01-29 04:02] VITALS: BP 96/59; PULSE 76; RESP 16; TEMP 36.9; O2SAT 98
[2025-01-29 06:59] LABS: Basophils % (Auto) 0 % (0-2.5); Eosinophils # (Auto) 0.1 Thou/mm3 (0.0-0.5); Eosinophils % (Auto) 1 % (0-10); Hematocrit 20.8 % (36.0-46.0); Immature Granulocytes % (Auto) 0 % (0-0); Immature Granulocytes Auto 0.03 Thou/mm3 (0.00-0.00); Lymphocytes # (Auto) 2.7 Thou/mm3 (1.0-4.8); Lymphocytes % (Auto) 33 % (10-50); Mean Corpuscular HGB Conc 36.1 g/dl (31.0-37.0); Mean Corpuscular Hemoglobin 33.9 pg (25.0-35.0); Mean Corpuscular Volume 94 fL (80-100); Monocytes # (Auto) 0.4 Thou/mm3 (0.0-0.8); Monocytes % (Auto) 5 % (0-12); Neutrophils % (Auto) 60 % (37-80); Nucleated Red Blood Cell % 0 /100 WBC (0); Platelet Count 170 Thou/mm3 (140-440); RDW Standard Deviation 45.6 fL (36.4-46.3); Red Blood Count 2.21 Miln/mm3 (4.00-5.20); White Blood Count 8.3 Thou/mm3 (3.6-11.0)
[2025-01-29 07:08] LABS: Hemoglobin 7.5 g/dL (12.0-16.0)
[2025-01-29 07:24] VITALS: BP 100/59; PULSE 84; RESP 18; TEMP 36.7; O2SAT 99
--- NOTE | 2025-01-29 07:30 | PC.NURSE ---
Dr. Portillo made aware of pts cbc, no new orders
--- NOTE | 2025-01-29 07:37 | PD.LDPPPRG ---
Subjective Subjective Interval history: Delivery type: Patient doing well this morning. No acute complaints. Ambulating, tolerating p.o. and voiding without difficulty. HTN/Pre-Eclampsia screen: No chest pain, shortness of breath, headache, visual changes, epigastric or right upper quadrant pain. Breast-feeding, lochia diminishing. Bowel: Flatus+/ BM+ Exam Vital Signs Temp Pulse Resp BP Pulse Ox O2 Del Method 98.5 F 76 16 96/59 L 98 Room Air 01/29/25 04:02 01/29/25 04:02 01/29/25 04:02 01/29/25 04:02 01/29/25 04:02 01/29/25 04:02 Constitutional Constitutional: no acute distress Routine HEENT Exam Head: Present normocephalic and atraumatic Eye: Present EOMI and PERRL ENT: Present mucous membranes moist Routine Neck Exam Neck: Present supple and trachea midline Routine Respiratory Exam Respiratory: Present chest non-tender, lungs clear, normal breath sounds and no resp distress Routine Cardiovascular Exam Cardiovascular: Present RRR Routine Abdominal Exam Abdominal: Present soft and normoactive bowel sounds Routine Extremities Exam Extremities: Present full ROM Routine Skin Exam Skin: Present intact, dry and warm Routine Neurological Exam Neurological: Present alert, oriented X3 and CN II-XII intact Routine Psychiatric Exam Psychiatric: Present normal affect and normal thought process Objective Labs 01/29/25 06:18 Labs: Laboratory Results - last 24 hr 01/28/25 01/28/25 01/29/25 13:57 14:00 06:18 WBC 14.0 H 8.3 D RBC 3.24 L 2.21 L Hgb 11.2 L 7.5 L D Hct 30.2 L 20.8 L* MCV 93 94 MCH 34.6 33.9 MCHC 37.1 H 36.1 RDW Std Deviation 43.9 45.6 Plt Count 248 170 D Neut % (Auto) 80 60 Lymph % (Auto) 14 33 [place] % (Auto) 5 5 Eos % (Auto) 0 1 Baso % (Auto) 0 0 Neut # (Auto) 11.3 H 5.0 Lymph # (Auto) 2.0 2.7 [place] # (Auto) 0.7 0.4 Eos # (Auto) 0.1 0.1 Baso # (Auto) 0.0 0.0 Immature Gran # (Auto) 0.04 H 0.03 H Absolute Nucleated RBC 0.00 0.00 Immature Gran % 0 0 Nucleated RBC % 0 0 Urine Opiates Screen Negative U Amphetamin/Meth Scrn Negative U Cocaine Metab Screen Negative U Marijuana (THC) Screen Negative Syphilis Serology Nonreactive Blood Type O Positive Antibody Screen NEGATIVE Blood Bank Wristband ID Yes Assessment & Plan Problem List (1) premature rupture of membranes: Status: Acute Assessment and plan: day 1 status post delivery with hemorrhage and D&C, patient is now stable. Hemoglobin is 7.5 but she is asymptomatic. Will plan to discharge home on oral iron and she will follow-up with her regular provider in the office after 2 weeks. (2) Intrauterine : Status: Acute (3) Retained placenta: Status: Acute (4) hemorrhage: Status: Acute Time Spent With Patient Time: Total time spent is greater than 50% in coordination of care (as documented) at patient's floor/unit and/or counseling patient:
--- NOTE | 2025-01-29 07:39 | ESDS_ITS ---
DS: Providers Provider Date of admission: 01/28/25 13:19 Primary care physician: Physician No Primary/Family Admitting Provider: Tasia Ziegler MD ([facility]) Attending Provider on Admission: Gavino Portillo MD Attending Provider on DC: Gavino Portillo MD Discharging Provider: Gavino Portillo MD DS: Diagnosis Discharge Diagnosis (1) hemorrhage: Status: Acute (2) Retained placenta: Status: Acute (3) premature rupture of membranes: Status: Acute (4) Intrauterine : Status: Acute Problem List Completed Was Problem List Reviewed/Reconciled?: Yes Summary/Hosp Course Brief History: The patient is a 39-year-old -1-0-2 with a history of vaginal delivery x 2 in the past , the most recent baby delivered on August 11, 2024. She also stated she was induced in another when she was 4 to 5 months along for a demise. That baby apparently did not develop kidneys. The patient is Beninese-speaking only. She presented to the ER today reporting ruptured membranes. She was unsure of her LMP but stated she might have been 4 months . In the ER ,small feet were coming from patient's vagina. I went to the ER to evaluate the patient, she was not bleeding heavily, she could not push and did not feel contractions so she was admitted up to labor and delivery for further management. In labor and delivery she was given 400 mcg of Cytotec orally. She went on to deliver vaginally a nonviable fetus in a double footling breech presentation at 1600. I was not at bedside but was called over from clinic. I arrived at bedside by 1610. The patient was found to be bleeding briskly with placenta still in place. Approximate EBL in the delivery room was 600 cc. The patient could not push the placenta out and was too uncomfortable. At this point, I called for emergent manual removal of placenta and curettage in the OB OR. Peripartum Data Delivery Method: Normal Vaginal Delivery Episiotomy Description: None Procedures: Procedures Operation Date: 01/28/25 15:45 Actual Procedure Side Surgeon p Dilatation & Curettage Not Applicable Tasia Ziegler ([facility])MD Time Spent with Patient Time attestation: Total time spent providing and/or coordinating discharge services: Exam Vital Signs Temp Pulse Resp BP Pulse Ox O2 Del Method 98.5 F 76 16 96/59 L 98 Room Air 01/29/25 04:02 01/29/25 04:02 01/29/25 04:02 01/29/25 04:02 01/29/25 04:02 01/29/25 04:02 Discharge Plan Plan Patient Disposition: HOME (Self Care) Patient condition on transfer: Stable Prescriptions/Referrals Prescriptions/Med Rec: New ibuprofen 400 mg Tablet 800 mg PO Q8H PRN (Reason: See Comments) 10 Days Qty: 40 0RF docusate sodium [Stool Softener] 100 mg capsule 100 mg PO QDAY 30 Days Qty: 30 0RF ferrous sulfate 325 mg (65 mg iron) tablet 325 mg PO BID 90 Days Qty: 180 3RF Discontinued ferrous sulfate [FeroSul] 325 mg (65 mg iron) tablet 325 mg PO QDAY No Action ursodiol 300 mg capsule 300 mg PO QDAY Vitamin 27 mg iron- 800 mcg tablet 1 tab PO QDAY Referrals: Karlie ([facility]),Tasia Churchill MD [Physician] - No Primary/Family,Physician [Primary Care Provider] - Patient/Caregiver Discharge Instructions Education Materials: Loss Grieving, Stillbirth, Hemorrhage Print Language: Beninese Stand Alone Forms: Ruth Award Info., Patient Portal Info Letter, DC from Surgery Discharge Order Discharge Orders: Discharge (Routine); Ordered 01/29/25 Ordered By: Gavino Portillo Planned Discharge Date 01/29/25 (1) hemorrhage Qualifiers: hemorrhage type: other immediate Qualified Code(s): O72.1 - Other immediate hemorrhage (2) Retained placenta Qualifiers: Retained placenta detail: complete placenta Qualified Code(s): O73.0 - Retained placenta without hemorrhage (3) premature rupture of membranes Qualifiers: PROM onset of labor timing: onset of labor within 24 hours of rupture Qualified Code(s): O42.019 - premature rupture of membranes, onset of labor within 24 hours of rupture, unspecified trimester
[2025-01-29 11:32] VITALS: BP 100/60; PULSE 75; RESP 18; TEMP 37.1; O2SAT 98
--- NOTE | 2025-01-29 14:32 | PC.NURSE ---
Patient cleared by Myles in nursing home social worker
--- NOTE | 2025-01-29 14:34 | PC.SS ---
IMPROVEMENT DIRECTOR met with pt at bedside while pt's was present during bedside conversation. IMPROVEMENT DIRECTOR offered resources to pt and offered to refer pt to any community resources that pt can use to help cope with the loss, pt stated that she feels okay and that her family has been supportive and plans and taking time off to be there with pt. IMPROVEMENT DIRECTOR stated that he will be available if pt changes her mind or needs any support from rn social work.
== END 2025-01-29 14:55 | disposition home or self-care (01) | DRG 564 ==
LOC: SERX 13:26 → S4SX 13:31 → S4NX 21:46
PROVIDERS: Admitting Provider Obstetrics & Gynecology; Emergency Provider Family Medicine; Visit Provider Obstetrics & Gynecology
PROC: 10D17Z9 Manual Extraction of Products of Conception, Retained, Via Natural or Artificial Opening (ICD-10-PCS; CPT 58120; principal; 2025-01-28 15:30)
DX: O03.4 Incomplete spontaneous abortion without complication (principal)
CPT/HCPCS: 36415; 59409; 76805; 80307; 85025; 86780; 86850; 86900; 86901; 99285; A4649; J0131; J0689; J2250; J2590; J3010; J3490; S0191; A9270

== ENCOUNTER 2025-02-02 09:59 | Outpatient (AMB) | payer MEDICAID, SELFPAY ==
[2025-02-02 10:39] VITALS: BP 130/87; PULSE 90; RESP 18; TEMP 36.2; O2SAT 98
--- NOTE | 2025-02-02 10:39 | AMB.OBPP ---
Vital Signs 02/02/25 10:39 Weight 58.117 kg Weight Measurement Method Standing Scale BP 130/87 H Blood Pressure Source Automatic Cuff Blood Pressure Location Left Upper Arm Position Sitting Respiration 18 Pulse 90 Pulse Source Monitor Temp 97.2 F Temp Source Oral Pulse Oximetry (%) 98 Oxygen Delivery Method Room Air Allergies/Home Meds Allergies & Medications Allergies No Known Allergies Allergy (Verified 01/28/25 13:48) Medication Reconciliation vits no.130-ferrous fum 27 mg iron-folic acid 800 mcg tablet ( Vitamin) 1 tab PO QDAY 08/08/24 [History Confirmed 02/02/25] ursodiol 300 mg capsule 300 mg PO QDAY 08/08/24 [History Confirmed 02/02/25] docusate sodium 100 mg capsule (Stool Softener) 100 mg PO QDAY 30 days #30 caps 01/29/25 [Rx Confirmed 02/02/25] ferrous sulfate 325 mg (65 mg iron) tablet 325 mg PO BID 90 days #180 tabs 01/29/25 [Rx Confirmed 02/02/25] ibuprofen 400 mg tablet 800 mg (2 x 400 mg) PO Q8H PRN See Comments 10 days #40 tabs 01/29/25 [Rx Confirmed 02/02/25] Intake Visit Data Collection New Patient or Established: Established Patient (seen at [facility] within 3 years) Reason for Visit:: Follow up from hospital Seen by Clinical Staff ONLY (RN/MA): No Wood Furniture Assembler Required: Yes Wood Furniture Assembler's name/title: GLENIS GUILLERMO MA Do You Feel Safe at Home: Yes Authorities Contacted: N/A PCP or OBGYN visit in last 3 months: Yes Date of Last PCP or OBGYN visit: 01/29/25 Hx Now: No Are you currently on any form of Control: No Pain Present Currently: No Pain Scale Used: Thomason-Llamas/Numerical Pain scale:: 0 Smoking Status Smoking Status: Never smoker BUILDING CODE ADMINISTRATOR: Past Medical History Past Medical History: No Hx Neurological Disorders, No Hx Cardiac Disorders, No Hx Cancer, No Hx Blood Disorders, No Hx Gastrointestinal Disorders, No Hx Renal Disease, No Hx Diabetes Mellitus Type 1 and No Hx Diabetes Mellitus Type 2 Additional Operations/Hospitalizations (year & reason): Pt has has x2, one baby was just born in 08/15. She had a demise at 20 weeks and an IOL> That baby did not develop kidneys Questionnaires Covid-19 Vaccine Questionnaire Has patient been vacinated for Covid-19 Have you been vacinated for Covid-19: Yes Social History Living Situation History Marital Status: Lives With: Family Housing: Apartment Housing Other:: Has two children. Is Lao-speaking only Tobacco History Smoking Status: Never smoker Second Hand Smoke Exposure: No Alcohol History Alcohol Intake: Never Domestic Abuse History Do You Feel Safe at Home: Yes HPI Interval History: The patient is a 39 y/o G4Pnow 2111 who presented to the ED with PROM at 17 6/7 weeks on 01/28/25. She said she took a shower and when she got out, she had water running down her legs. In the ER, feet were protruding from the patient's vagina. She was given one dose of oral cytotec and delivered about 4 hours later. She had a PPH and retained placenta and had to go to the OR for removal. I delivered her and performed her manual removal of placenta. She is only PPD #5 today. I'm not sure why she was sheduled so soon after delivery. She is grieving appropriatley and her milk has gone down with binding her breasts. Was or delivery considered high risk: Yes Delivery type: vaginal Was labor induced: yes Gestational age at delivery (weeks): 18 Delivery date: 01/28/25 Delivering provider: Dr. Liv Ziegler Delivery complications: Yes Delivery complications comment: Retained placenta, removal in OR +PPH Is patient : No Is patient sexually active: No Contraception planned: will follow up in 4 weeks Office Procedures OB Clinic LOC & Office Proc's Nursing/Assessment Patient Status: Established Patient OB Clinic Nursing Assessment: BP Monitoring, Medication Reconciliation, Update PMH in EMR and Vital Signs OB Clinic Coordination of Care: Education Complex Pt/Fam, Consent,records obtained, informed consent and Staff clarify orders Special Needs: Language special needs Established Patient Charge Established Patient Point Assignment: 80 Established Patient Point Charge: EP Level 3 (80-115) Assessment & Plan Diagnosis / Problem List (1) Routine Follow-Up: Assessment and Plan: Check CBC, pelvic rest as pt is only 5 days post . Follow up in 4 weeks. (2) premature rupture of membranes: Status: Acute Qualifiers: PROM onset of labor timing: onset of labor within 24 hours of rupture Qualified Code(s): O42.019 - premature rupture of membranes, onset of labor within 24 hours of rupture, unspecified trimester (3) Retained placenta: Status: Acute Qualifiers: Retained placenta detail: complete placenta Qualified Code(s): O73.0 - Retained placenta without hemorrhage (4) hemorrhage: Status: Acute Qualifiers: hemorrhage type: other immediate Qualified Code(s): O72.1 - Other immediate hemorrhage (5) delivery: Status: Acute Care Contraception planned: will follow up in 4 weeks (FP) Tobacco Smoking Status: Never smoker
== END 2025-02-02 10:46 | disposition home or self-care (01) ==
LOC: HODSOBC 09:59
PROVIDERS: Supervising Provider Obstetrics & Gynecology; Visit Provider Obstetrics & Gynecology
DX: Z39.2 Encounter for routine postpartum follow-up (principal)
CPT/HCPCS: 99213; G0463

== ENCOUNTER → 2025-02-02 | Outpatient (CLI) | payer MEDICAID, SELFPAY ==
[2025-02-02 11:59] LABS: Basophils % (Auto) 0 % (0-2.5); Eosinophils # (Auto) 0.2 Thou/mm3 (0.0-0.5); Eosinophils % (Auto) 3 % (0-10); Hematocrit 26.2 % (36.0-46.0); Immature Granulocytes % (Auto) 3 % (0-0); Lymphocytes # (Auto) 1.9 Thou/mm3 (1.0-4.8); Lymphocytes % (Auto) 29 % (10-50); Mean Corpuscular HGB Conc 34.4 g/dl (31.0-37.0); Mean Corpuscular Hemoglobin 34.6 pg (25.0-35.0); Mean Corpuscular Volume 101 fL (80-100); Monocytes # (Auto) 0.5 Thou/mm3 (0.0-0.8); Monocytes % (Auto) 7 % (0-12); Neutrophils # (Auto) 3.9 Thou/mm3 (1.8-7.7); Neutrophils % (Auto) 58 % (37-80); Nucleated Red Blood Cell # 0.02 Thou/mm3 (0.00-0.00); Nucleated Red Blood Cell % 0 /100 WBC (0); Platelet Count 316 Thou/mm3 (140-440); RDW Standard Deviation 48.7 fL (36.4-46.3); White Blood Count 6.7 Thou/mm3 (3.6-11.0)
== END | disposition home or self-care (01) ==
LOC: COPL 11:06
PROVIDERS: PCP Family Medicine
DX: Z39.2 Encounter for routine postpartum follow-up (principal)
CPT/HCPCS: 36415; 85025